=== PATIENT | female | born 1960 | race Caucasian/White ===

== ENCOUNTER 2020-09-19 16:05 | Emergency (ER) | payer MEDICAID ==
--- NOTE | 2020-09-19 17:08 | EDM.PDOC ---
ED HPI GENERAL MEDICAL PROBLEM - General Chief Complaint: General Stated Complaint: TROUBLES MOVING ARM Time Seen by Provider: 09/19/20 16:20 Source of Information: Reports: Patient History Limitations: Reports: No Limitations - History of Present Illness INITIAL COMMENTS - FREE TEXT/NARRATIVE: Patient presents to the emergency department with right upper extremity pain and areas of erythema and swelling to her distal wrist, antecubital, and right bicep area. Patient states intravenous blood draw approximately 3 weeks ago and she noticed symptoms of pain from the site of blood draw immediately and since. Discomfort has been slowly increasing throughout the last several weeks. Patient denies fever, chills. Pain is exacerbated by palpation of wrist, forearm, antecubital area and bicep of right arm. Patient denies fever, chills, shortness of breath, chest pain, cyanosis of the right upper extremity, unilateral weakness, nausea, vomiting. Onset: Gradual - Related Data Home Meds: Home Meds Warfarin [Coumadin] 5 mg PO DAILY 90 Days #90 tab 09/19/20 [Rx] Past Medical History Cardiovascular History: Reports: High Cholesterol, Hypertension Other Cardiovascular History: currently not on hypertensive meds Other Musculoskeletal History: left knee surguries Endocrine/Metabolic History: Reports: Hypothyroidism Other Hematologic History: history of blood clots - Past Surgical History HEENT Surgical History: Reports: Tonsillectomy Social & Family History - Tobacco Use Tobacco Use Status *Q: Heavy Tobacco User Years of Tobacco use: 40 Packs/Tins Daily: 1 Second Hand Smoke Exposure: Yes ED ROS GENERAL - Review of Systems Review Of Systems: Comprehensive ROS is negative, except as noted in HPI. ED EXAM, GENERAL - Physical Exam Exam: See Below Exam Limited By: No Limitations General Appearance: Alert, WD/WN, No Apparent Distress Throat/Mouth: Normal Oropharynx, Normal Voice, No Airway Compromise Neck: Normal Inspection, Non-Tender, Full Range of Motion Respiratory/Chest: No Respiratory Distress, Lungs Clear, Normal Breath Sounds, No Accessory Muscle Use, Chest Non-Tender Cardiovascular: Normal Peripheral Pulses, Regular Rate, Rhythm, No Edema, No Murmur Peripheral Pulses: 2+: Radial (L), Radial (R), Posterior Tibial (L), Posterior Tibial (R) Extremities: Arm Pain (erythema and edema to distal right wrist, right antecubital area TTP to these areas) Neurological: Alert, Oriented, CN II-XII Intact Psychiatric: Normal Affect Skin Exam: Warm, Dry, Intact Course - Vital Signs Last Recorded V/S: Last Vital Signs Temp 97.4 F 09/19/20 16:16 Pulse 110 H 09/19/20 16:16 Resp 16 09/19/20 16:16 BP 126/86 09/19/20 16:16 Pulse Ox 95 09/19/20 16:16 - Orders/Labs/Meds Orders: Active Orders 24 hr Category Date Time Status FACTOR V LEIDEN MUTATION Stat Lab 09/19/20 16:58 Ordered PROTEIN S-ANTIGEN Stat Lab 09/19/20 16:58 Ordered Labs: Laboratory Tests 09/19/20 09/19/20 Range/Units 16:58 16:58 PT 10.4 (9.0-11.5) sec INR 1.0 (1.0-3.5) APTT 24.3 L (24.4-33.2) SECONDS Sodium 138 (136-145) mmol/L Potassium 3.9 D (3.5-5.1) mmol/L Chloride 102 (98-107) mmol/L Carbon Dioxide 28.7 (21.0-32.0) mmol/L Anion Gap 11.2 (5.0-15.0) mmol/L BUN 3 L D (8-26) mg/dL Creatinine 1.11 H (0.55-1.02) mg/dL Est Cr Clr Drug Dosing TNP Estimated GFR (MDRD) 50 L (>60) MLS/MIN BUN/Creatinine Ratio 2.7 L (6-25) Glucose 150 H D (74-100) mg/dL Calcium 8.6 (8.5-10.1) mg/dL Meds: Medications Discontinued Medications Generic Name Dose Route Start Last Admin Trade Name Freq PRN Reason Stop Dose Admin Warfarin Sodium 5 mg 09/19/20 17:25 09/19/20 17:50 Warfarin 5 Mg Tab PO 09/19/20 17:26 5 mg ONETIME ONE Administration - Re-Assessments/Exams Free Text/Narrative Re-Assessment/Exam: 09/19/20 1645 bedside US of RUE shows TTP with intermittent thrombophlebitis of cephalic vein from distal wrist to shoulder. noncompressibility throughout distal wrist to shoulder of cephalic vein. brachial and basilic veins are intact and remain compressible throughout. Departure - Departure Time of Disposition: 17:04 Disposition: Home, Self-Care 01 Condition: Good Clinical Impression: Deep vein thrombosis (DVT) of right upper extremity - Discharge Information *PRESCRIPTION DRUG MONITORING PROGRAM REVIEWED*: Not Applicable *COPY OF PRESCRIPTION DRUG MONITORING REPORT IN PATIENT RODNEY: Not Applicable Prescriptions: Warfarin [Coumadin] 5 mg PO DAILY 90 Days #90 tab Instructions: Deep Vein Thrombosis Referrals: PCP,None [Primary Care Provider] - Forms: ED Department Discharge Additional Instructions: 5mg coumadin, take once per day follow up for lab/INR on wednesday the in [place] lab ultrasound for official study next week "coumadin clinic" will help you manage with lab values and dose changes if needed via telephone follow up with Dr. Camargo in 2 weeks and again about Dec 20, at this time he may continue or stop the coumadin. IF ANY SYMPTOMS OF SHORTNESS OF BREATH, CHEST PAIN, WEAKNESS TO ONE SIDE OF YOUR BODY (STROKE SYMPTOMS) OR OTHER CONCERNING THINGS return to the ER. these may be signs of blood clot moving to your heart, lungs or brain Sepsis Event Note (ED) - Evaluation Sepsis Screening Result: No Definite Risk - Focused Exam Vital Signs: Vital Signs Temp Pulse Resp BP Pulse Ox 09/19/20 16:16 97.4 F 110 H 16 126/86 95 - Problem List & Annotations (1) Deep vein thrombosis (DVT) of right upper extremity SNOMED Code(s): 746936269 Code(s): I82.621 - ACUTE EMBOLISM AND THROMBOSIS OF DEEP VEINS OF R UP EXTREM Status: Acute - Problem List Review Problem List Initiated/Reviewed/Updated: Yes - My Orders Last 24 Hours: My Active Orders 09/19/20 16:58 FACTOR V LEIDEN MUTATION Stat PROTEIN S-ANTIGEN Stat - Assessment/Plan Last 24 Hours: My Active Orders 09/19/20 16:58 FACTOR V LEIDEN MUTATION Stat PROTEIN S-ANTIGEN Stat Assessment:: Assessment: Thrombosis and thrombophlebitis of right upper extremity Plan: Start Coumadin 5 mg daily today, recheck INR on Wednesday. Ultrasound valuation of right upper extremity ordered. Factor V Leiden and protein S coagulopathic studies ordered as well. Patient provided return precautions regarding neurologic symptoms, cardiac symptoms, pulmonary symptoms for ER return.
[2020-09-19] MEDS ORDERED: Warfarin 5 MG Tab PO ONE (17:25)
== END 2020-09-19 18:03 | disposition home or self-care (01) ==
LOC: LB.ED 16:05
DX: I82.621 Acute embolism and thrombosis of deep veins of right upper extremity (principal); I10 Essential (primary) hypertension; Z72.0 Tobacco use; Z79.01 Long term (current) use of anticoagulants
CPT/HCPCS: 80048; 85610; 85730; 99284-25; A9270-GY

== ENCOUNTER 2022-08-27 13:02 | Emergency (ER) | payer MEDICAID ==
[2022-08-27] MEDS ORDERED: Losartan 50 MG Tab ONE (13:38)
[2022-08-27] MEDS ORDERED: Losartan 50 MG Tab PO ONE (13:40)
[2022-08-27] MEDS ORDERED: traMADol 50 MG Tab ONE (14:30)
== END 2022-08-27 14:42 | disposition home or self-care (01) ==
LOC: LB.ED 13:02
DX: S20.221A Contusion of right back wall of thorax, initial encounter (principal); I10 Essential (primary) hypertension; F17.210 Nicotine dependence, cigarettes, uncomplicated; M79.89 Other specified soft tissue disorders; Z79.01 Long term (current) use of anticoagulants; W01.0XXA Fall on same level from slipping, tripping and stumbling without subsequent striking against object, initial encounter
CPT/HCPCS: 71101-RT; 73080-LT; 73560-LT; 99284; A9270-GY